=== PATIENT | female | born 1980 | race Hispanic/Latino ===

== ENCOUNTER 2021-12-22 05:30 | Inpatient (IN) | payer BC ==
[2021-12-22] MEDS ORDERED: Bupivacaine/Epinephrine 0.25% 30 ML VIAL ONE (08:00)
[2021-12-22] MEDS ORDERED: ePHEDrine Sulfate 50 MG/10 ML VIAL ONE (08:00)
[2021-12-22] MEDS ORDERED: Lidocaine 2% MPF 10 ML AMP (For Epidural Use) ONE (08:00)
[2021-12-22] MEDS ORDERED: Ondansetron PF 4 MG/2 ML Vial IVP PRN (21:29)
[2021-12-22] MEDS ORDERED: HYDROcodone/Acetaminophen 5/325 mg Tablet PO PRN (21:29)
[2021-12-22] MEDS ORDERED: Methylergonovine 0.2 MG/ML VIAL IM PRN (21:29)
[2021-12-22] MEDS ORDERED: Butorphanol Tartrate 1 MG/ML VIAL SLOW IVP PRN (21:29)
[2021-12-22] MEDS ORDERED: Lidocaine 1% (PF) 30 ML VIAL SC PRN (21:29)
[2021-12-22] MEDS ORDERED: Promethazine HCl 25 MG/ML VIAL IM PRN (21:29)
[2021-12-22] MEDS ORDERED: Misoprostol 200 MCG TAB PR PRN (21:29)
[2021-12-22] MEDS ORDERED: Ibuprofen 800 MG TAB PO PRN (21:29)
[2021-12-22] MEDS ORDERED: hydrALAZINE 20 MG/ML VIAL SLOW IVP PRN (21:29)
[2021-12-22] MEDS ORDERED: Carboprost 250 MCG/ML AMP IM PRN (21:29)
[2021-12-22] MEDS ORDERED: Acetaminophen 500 MG TAB PO PRN (21:29)
[2021-12-22] MEDS ORDERED: Diphenoxylate HCl/Atropine Tablet PO PRN (21:29)
[2021-12-22] MEDS ORDERED: NS w/ Oxytocin 30 units 500 ML IV SCH ×2 (21:30)
[2021-12-22] MEDS: Misoprostol 100 MCG TAB VAG SCH (22:02)
[2021-12-22] MEDS: Lactated Ringer's 1,000 ML IV SCH (22:02)
[2021-12-22 23:00] LABS: Hemoglobin 10.3 g/dL (12.0-15.5); Mean Corpuscular Hemoglobin 27.2 pg (27.0-33.0); Mean Corpuscular Volume 82.3 fl (81.6-98.3); Platelet Count 185 10x3/uL (150-450); RBC Distribution Width 16.3 % (11.5-14.5); Red Blood Cell (RBC) Count 3.79 10x6/uL (3.90-5.03); White Blood Cell (WBC) Count 9.8 10x3/uL (3.5-10.5)
[2021-12-22 23:34] LABS: Syphilis Antibody Nonreactive (Nonreactive); Syphilis Antibody Index 0.05 S/CO (<1.00 Non-Reactive)
[2021-12-22 23:35] LABS: HBSAg Index 0.15 S/CO (0-0.99); Hep B Surf Ag Non-Reactive S/CO (NonReactive)
[2021-12-23] MEDS: Misoprostol 100 MCG TAB VAG SCH ×2 (02:14→07:36)
[2021-12-23 12:36] LABS: ALT (SGPT) 11 U/L (8-55); AST (SGOT) 21 U/L (5-34); Albumin 3.1 g/dL (3.5-5.0); Alkaline Phosphatase 178 U/L (40-110); Anion Gap 13 mmol/L (10-20); BUN (Urea Nitrogen) 9 mg/dL (7.0-18.7); Bilirubin, Total 0.4 mg/dL (0.2-1.2); Calc. Creatinine Clearance 178 mL/min (70-130); Calcium 8.7 mg/dL (7.8-10.44); Carbon Dioxide 21 mmol/L (22-29); Chloride 106 mmol/L (98-107); Estimated GFR 115; Globulin 3.2 g/dL (2.4-3.5); Glucose 70 mg/dL (70-105); Potassium 3.5 mmol/L (3.5-5.1); Protein, Total 6.3 g/dL (6.0-8.3); Sodium 136 mmol/L (136-145)
[2021-12-23 12:45] VITALS: BMI 35.4
[2021-12-23] MEDS ORDERED: Fentanyl 2 mcg/Bup 0.1% Cadd 100 ML ONE (21:26)
[2021-12-23] MEDS ORDERED: Promethazine HCl 25 MG/ML VIAL IM PRN (22:12)
[2021-12-23] MEDS ORDERED: diphenhydrAMINE 50 MG/ML VIAL IVP PRN (22:12)
[2021-12-23] MEDS ORDERED: Lactated Ringer's 500 ML IV PRN (22:12)
[2021-12-23] MEDS ORDERED: Ondansetron PF 4 MG/2 ML Vial IVP PRN (22:12)
[2021-12-23] MEDS ORDERED: Naloxone HCl 0.4 mg/ml Vial IVP PRN ×2 (22:12)
[2021-12-23] MEDS ORDERED: Acetaminophen 325 MG TAB PO PRN (22:12)
[2021-12-23] MEDS ORDERED: Moisturizing Cream (Eucerin) 113 GM JAR TOP PRN (22:12)
[2021-12-23] MEDS ORDERED: ePHEDrine Sulfate 50 MG/10 ML VIAL SLOW IVP PRN (22:12)
[2021-12-23] MEDS ORDERED: Communication Order-Pharmacy FS SCH (22:15)
[2021-12-23] MEDS ORDERED: Fentanyl 2 mcg/Bupivacaine 0.1% Cassette 100 ML EPIDURAL SCH (22:15)
[2021-12-24] MEDS ORDERED: CEFAZOLIN 2 GM VIAL ONE (06:33)
[2021-12-24] MEDS ORDERED: Azithromycin 500 MG VIAL ONE (06:34)
[2021-12-24] MEDS ORDERED: Famotidine/PF 20 mg/2ml Vial SLOW IVP PRN (07:06)
[2021-12-24] MEDS ORDERED: Bicitra 30 ML UDCUP PO PRN (07:06)
[2021-12-24] MEDS ORDERED: Phenylephrine 40 MG/NS 250 ML 250 ML ONE (07:07)
[2021-12-24] MEDS ORDERED: Oxytocin 10 UNITS/ML VIAL ONE (07:14)
[2021-12-24] MEDS ORDERED: Azithromycin 500 MG in Sodium Chloride 0.9% 250 ML 250 ML IVPB SCH (07:15)
[2021-12-24] MEDS ORDERED: CEFAZOLIN 2 GM in Sodium Chloride 0.9% 100 ML IVPB SCH (07:15)
[2021-12-24] MEDS ORDERED: Ketorolac Tromethamine 30 MG/ML VIAL ONE (07:40)
[2021-12-24] MEDS ORDERED: diphenhydrAMINE 25 MG CAP PO PRN ×2 (07:54→09:35)
[2021-12-24] MEDS ORDERED: FENTANYL 500 MCG/10 ML VIAL 2,000 MCG in Sodium Chloride 0.9% 60 ML IV PRN (07:54)
[2021-12-24] MEDS ORDERED: Zolpidem Tartrate 5 MG TAB PO PRN ×2 (07:54→09:35)
[2021-12-24] MEDS ORDERED: diphenhydrAMINE 50 MG/ML VIAL IVP PRN (07:54)
[2021-12-24] MEDS ORDERED: diphenhydrAMINE 50 MG/ML VIAL IM PRN (07:54)
[2021-12-24] MEDS ORDERED: Naloxone HCl 0.4 mg/ml Vial IV PRN (07:54)
[2021-12-24] MEDS ORDERED: Ondansetron HCl/PF 4 MG/2 ML Vial IVP PRN (07:54)
[2021-12-24] MEDS ORDERED: Fentanyl 100 MCG/2 ML VIAL SLOW IVP PRN (07:54)
[2021-12-24] MEDS ORDERED: Ondansetron PF 4 MG/2 ML Vial IVP PRN ×2 (07:54→09:35)
[2021-12-24] MEDS ORDERED: Meperidine HCl/PF 25 MG/ML VIAL SLOW IVP PRN (07:54)
[2021-12-24] MEDS ORDERED: Promethazine HCl 25 MG/ML VIAL IM PRN ×2 (07:54→09:35)
[2021-12-24] MEDS ORDERED: Ketorolac Tromethamine 30 MG/ML VIAL IVP SCH (08:00)
[2021-12-24] MEDS ORDERED: Communication Order-Pharmacy FS PRN (08:00)
[2021-12-24] MEDS ORDERED: FENTANYL 500 MCG/10 ML VIAL 1,000 MCG, Admixture Fee 1 EACH in Sodium Chloride 0.9% 30 ML IV PRN (08:15)
[2021-12-24] MEDS: Misoprostol 100 MCG TAB VAG SCH ×2 (09:34→09:35)
[2021-12-24] MEDS ORDERED: Lanolin Ointment 7 GM TUBE TOP PRN (09:35)
[2021-12-24] MEDS ORDERED: Bisacodyl 10 MG SUPP PR PRN (09:35)
[2021-12-24] MEDS ORDERED: Boostrix 0.5 ML (Tdap) VIAL (>/=7 yrs of age) IM ONE (09:35)
[2021-12-24] MEDS ORDERED: Acetaminophen 325 MG TAB PO PRN (09:35)
[2021-12-24] MEDS ORDERED: hydrALAZINE 20 MG/ML VIAL SLOW IVP PRN (09:35)
[2021-12-24] MEDS: Lactated Ringer's 1,000 ML IV SCH (09:35)
[2021-12-24] MEDS ORDERED: Prenatal Vitamin 1 TAB PO SCH (10:00)
[2021-12-24] MEDS ORDERED: Ferrous Sulfate 325 MG TAB PO SCH (10:00)
[2021-12-24] MEDS ORDERED: Ketorolac Tromethamine 30 MG/ML VIAL IVP PRN (11:59)
[2021-12-24] MEDS: Ketorolac Tromethamine 30 MG/ML VIAL IVP SCH ×2 (13:36→20:09)
[2021-12-24] MEDS ORDERED: Ibuprofen 800 MG TAB PO SCH (14:00)
[2021-12-24] MEDS: Docusate 100 MG CAP PO SCH ×2 (15:14→20:10)
[2021-12-25] MEDS: Ketorolac Tromethamine 30 MG/ML VIAL IVP SCH ×2 (02:01→08:53)
[2021-12-25 04:53] LABS: Hemoglobin 8.9 g/dL (12.0-15.5); Mean Corpuscular HGB CONC 32.6 g/dL (32.0-36.0); Mean Corpuscular Hemoglobin 26.9 pg (27.0-33.0); Mean Corpuscular Volume 82.5 fl (81.6-98.3); Mean Platelet Volume 12.9 fl (7.4-10.4); Platelet Count 156 10x3/uL (150-450); RBC Distribution Width 16.3 % (11.5-14.5); Red Blood Cell (RBC) Count 3.31 10x6/uL (3.90-5.03); White Blood Cell (WBC) Count 9.1 10x3/uL (3.5-10.5)
[2021-12-25] MEDS ORDERED: HYDROcodone/Acetaminophen 5/325 mg Tablet PO PRN (08:34)
[2021-12-25] MEDS: Ferrous Sulfate 325 MG TAB PO SCH ×3 (08:47→22:32)
[2021-12-25] MEDS: Simethicone Chewable 80 MG TAB PO PRN ×3 (08:47→22:36)
[2021-12-25] MEDS: Prenatal Vitamin 1 TAB PO SCH (08:48)
[2021-12-25] MEDS: Docusate 100 MG CAP PO SCH ×2 (08:49→22:36)
[2021-12-25] MEDS: Ibuprofen 800 MG TAB PO SCH ×3 (08:50→22:33)
[2021-12-25] MEDS: HYDROcodone/Acetaminophen 5/325 mg Tablet PO PRN ×3 (08:51→22:33)
[2021-12-26] MEDS: Ibuprofen 800 MG TAB PO SCH ×2 (05:55→13:53)
[2021-12-26] MEDS: Ketorolac Tromethamine 30 MG/ML VIAL IVP SCH ×2 (06:24→09:41)
[2021-12-26] MEDS: Prenatal Vitamin 1 TAB PO SCH (08:13)
[2021-12-26] MEDS: HYDROcodone/Acetaminophen 5/325 mg Tablet PO PRN ×2 (08:13→13:57)
[2021-12-26] MEDS: Simethicone Chewable 80 MG TAB PO PRN (08:13)
[2021-12-26] MEDS: Docusate 100 MG CAP PO SCH (08:13)
[2021-12-26] MEDS: Ferrous Sulfate 325 MG TAB PO SCH (08:13)
[2021-12-26 08:14] VITALS: BP 124/82; TEMP 98.2
== END 2021-12-26 14:20 | disposition home or self-care (01) | DRG 787 ==
LOC: CSHLD 19:57 → CSHPP 12-24 09:45
PROVIDERS: ADMIT Student in an Organized Health Care Education/Training Program; ATTEND Student in an Organized Health Care Education/Training Program
PROC: 10907ZC Drainage of Amniotic Fluid, Therapeutic from Products of Conception, Via Natural or Artificial Opening (ICD-10-PCS; 2021-12-23)
PROC: 3E033VJ Introduction of Other Hormone into Peripheral Vein, Percutaneous Approach (ICD-10-PCS; 2021-12-23)
PROC: 10D00Z1 Extraction of Products of Conception, Low, Open Approach (ICD-10-PCS; principal; 2021-12-24)
DX: O24.420 Gestational diabetes mellitus in childbirth, diet controlled (principal); D62 Acute posthemorrhagic anemia; O62.1 Secondary uterine inertia; Z37.0 Single live birth; O76 Abnormality in fetal heart rate and rhythm complicating labor and delivery; Z88.5 Allergy status to narcotic agent; Z91.018 Allergy to other foods; Z3A.38 38 weeks gestation of pregnancy; Z79.899 Other long term (current) drug therapy; M06.9 Rheumatoid arthritis, unspecified; O99.892 Other specified diseases and conditions complicating childbirth; O13.5 Gestational [pregnancy-induced] hypertension without significant proteinuria, complicating the puerperium; O90.81 Anemia of the puerperium; Z20.822 Contact with and (suspected) exposure to COVID-19
CPT/HCPCS: 36415; 36416; 51702; 80053; 85027; 86780; 86850; 86900; 86901; 87340; 99285; J1885; J2590; J3010; J3490; J7120; U0002

== ENCOUNTER 2022-12-17 05:59 | Day surgery (SDC) | payer BC ==
[2022-12-15 15:44] VITALS: BMI 31.1
[2022-12-15 16:50] LABS: Hemoglobin 12.4 g/dL (12.0-15.5); Mean Corpuscular Volume 77.5 fl (81.6-98.3); Platelet Count 313 10x3/uL (150-450); Red Blood Cell (RBC) Count 5.16 10x6/uL (3.90-5.03)
[2022-12-15 16:51] LABS: White Blood Cell (WBC) Count 6.8 10x3/uL (3.5-10.5)
[2022-12-15 17:15] LABS: BHCG - Serum Negative (NEGATIVE); Pregs Control Background? CLEAR/WHITE (CLR/WHITE); Pregs Control Bar Appear? YES (CONTROL BAR)
[2022-12-17] MEDS ORDERED: CeleCOXIB 100 MG CAP ONE (06:31)
[2022-12-17] MEDS ORDERED: Ondansetron PF 4 MG/2 ML Vial ONE (07:37)
[2022-12-17] MEDS ORDERED: Dexamethasone 20 MG/5 ML VIAL ONE (07:37)
[2022-12-17] MEDS ORDERED: Ketorolac Tromethamine 30 MG/ML VIAL ONE (07:37)
[2022-12-17] MEDS ORDERED: PROPOFOL 20 ML ONE ×2 (07:37→07:53)
[2022-12-17] MEDS ORDERED: Midazolam HCl 2 mg/2 ml Vial ONE (07:38)
[2022-12-17] MEDS ORDERED: fentaNYL 50 mcg/mL 1 mL Vial ONE (07:38)
[2022-12-17] MEDS ORDERED: Silver Nitrate Application 1 EACH ONE (08:01)
== END 2022-12-17 09:45 | disposition home or self-care (01) ==
LOC: CSHSDC 05:59
PROVIDERS: ATTEND Student in an Organized Health Care Education/Training Program
PROC: 0UDB8ZZ Extraction of Endometrium, Via Natural or Artificial Opening Endoscopic (ICD-10-PCS; principal; 2022-12-17)
DX: N93.9 Abnormal uterine and vaginal bleeding, unspecified (principal); R93.89 Abnormal findings on diagnostic imaging of other specified body structures; F17.210 Nicotine dependence, cigarettes, uncomplicated; J45.909 Unspecified asthma, uncomplicated; E66.9 Obesity, unspecified; Z68.31 Body mass index [BMI] 31.0-31.9, adult; Z88.5 Allergy status to narcotic agent; Z91.018 Allergy to other foods
CPT/HCPCS: 84703; 85027; 86850; 86900; 86901; 88305; J1100; J1885; J2250; J2405; J2704; J3010